=== PATIENT | male | born 1960 | race Caucasian/White ===

== ENCOUNTER 2017-02-01 11:30 | Day surgery (SDC) | payer BC ==
--- NOTE | 2017-02-01 07:36 | HP ---
DATE OF SURGERY: 02/01/2017 HISTORY OF PRESENT ILLNESS: The patient is a 57 year-old with history of colon cancer. The last colonoscopy was a couple of years ago and he is in need of follow up screening colonoscopy. He denies any blood in his stools, denied any change in bowel movement or abdominal pain. PAST MEDICAL HISTORY: He has had hypothyroidism, hypertension and colon cancer. PAST SURGICAL HISTORY: Colon cancer surgery, neck surgery, hernia repair in the past. MEDICATIONS: He takes some blood pressure and thyroid pill the names of which he did not know. ALLERGIES: NKDA. FAMILY HISTORY: Cancer. SOCIAL HISTORY: No smoking. Alcohol use six beers per week denies abuse. REVIEW OF SYSTEMS: Twelve systems reviewed per admission assessment. No chest pain or palpitations other systems negative or noncontributory as above and per preadmission questionnaire. PHYSICAL EXAMINATION: GENERAL: No acute distress. HEENT: Sclerae nonicteric. NECK: No JVD. CHEST: Equal excursion, nonlabored breathing. CVS: Regular rate and rhythm. ABDOMEN: Soft. No peritoneal signs. EXTREMITIES: No significant edema. NEURO: Alert, moving extremities symmetrically. No gross motor deficits noted. IMPRESSION: History of colon cancer in need of follow up screening colonoscopy. I feel he is a candidate, will proceed colonoscopy. General risk of bleeding or infection, small risk of bowel injury or perforation possibly requiring open procedure, small risk of missed or nondiagnosis or incomplete exam possibly requiring barium enema, other studies or procedures. He understands and agrees to the planned procedure and will proceed with outpatient colonoscopy.
[2017-02-01] MEDS ORDERED: DEMEROL 50 MG IV ONE (11:31)
[2017-02-01] MEDS ORDERED: Zofran 4 MG/2 ML VIAL IV ONE (11:31)
[2017-02-01] MEDS ORDERED: VERSED 5 MG/5 ML IV ONE (11:31)
[2017-02-01] MEDS ORDERED: Lactated Ringers 1,000 ML IV SCH (12:30)
[2017-02-01] MEDS ORDERED: Lactated Ringers 1,000 ML IV ONE (15:28)
[2017-02-01 18:03] VITALS: PULSE 55; O2SAT 98
[2017-02-01 18:08] VITALS: BP 126/78
--- NOTE | 2017-02-02 08:50 | OP ---
SURGERY DATE/TIME: 02/01/2017 1452 PREOPERATIVE DIAGNOSIS: History of colon cancer, need for follow up colonoscopy. POSTOPERATIVE DIAGNOSES: 1) Poor prep limiting the exam. 2) Diverticulosis. 3) Small internal and external hemorrhoids. 4) Small raised lesion versus hyperplastic lesion versus early polyp sigmoid colon. PROCEDURES: Colonoscopy. SURGEON: Dr. Blu Le. ANESTHESIA: IV sedation IV Demerol and Versed. ESTIMATED BLOOD LOSS: Minimal. INDICATIONS: As noted above. Risks and benefits explained in detail but not limited to and consent obtained. He had forgotten to stop his aspirin but he accepted the increased risk of bleeding and decided he wanted to go ahead and proceed since he had taken the prep. Risks and benefits explained in detail but not limited to, consent had been obtained. DESCRIPTION OF PROCEDURE AND FINDINGS: The patient is taken to the endoscopy room. After official time out and no disagreement with planned procedure, he is incrementally sedated with IV Demerol and Versed. In conscious sedated state and hemodynamically stable. Digital rectal exam did not reveal any rectal masses. He did have some small internal and external hemorrhoids. Video colonoscope inserted and passed up the tortuous sigmoid, descending colon around to the terminal ileum which was grossly unremarkable. The ileocolonic anastomotic site no evidence of recurrence and was widely patent. The scope slowly and carefully withdrawn. Again the prep was very poor with liquidy semisolid stool very much limiting the exam this was hard to suck into the scope. Slowly and carefully suctioned. The scope is slowly and carefully withdrawn over the next eight to ten minutes. A couple very small raised lesions whether these are simple hyperplastic lesions versus early polyps removed with hot biopsy forceps with brief bursts of cautery with hot biopsy forceps at least two or three areas in the sigmoid colon. Otherwise he had some mild diverticulosis. He had some small internal and external hemorrhoids. There were no signs of any large polyps, masses or obstructing lesions. Again, the very poor prep limited the exam for small lesions. If these polyps are hyperplastic will follow up in a couple of years. If there is any adenomatous polyps on biopsy report may consider follow up in one year. Otherwise he tolerated the procedure well. Scope is withdrawn. He had some small internal and external hemorrhoids. There are no signs of any large polyps, masses or obstructing lesions. No evidence of recurrence at the anastomotic site. Findings discussed with his out in the waiting area.
== END 2017-02-01 16:35 | disposition home or self-care (01) ==
LOC: SDC 11:30
PROVIDERS: ATTEND Surgery
PROC: 0DBN8ZX Excision of Sigmoid Colon, Via Natural or Artificial Opening Endoscopic, Diagnostic (ICD-10-PCS; principal; 2017-02-01)
DX: K57.90 Diverticulosis of intestine, part unspecified, without perforation or abscess without bleeding (principal); K64.4 Residual hemorrhoidal skin tags; K64.8 Other hemorrhoids; K63.9 Disease of intestine, unspecified; K63.5 Polyp of colon; Z12.11 Encounter for screening for malignant neoplasm of colon; E03.9 Hypothyroidism, unspecified; I10 Essential (primary) hypertension
CPT/HCPCS: J2175; J2250; J2405

== ENCOUNTER 2020-02-05 08:08 | Day surgery (SDC) | payer BC ==
--- NOTE | 2020-02-05 07:42 | HP ---
DATE OF SURGERY: 02/05/2020 HISTORY OF PRESENT ILLNESS: The patient is a 60 year old with history of colon cancer. He denies any bleeding, denies any change in bowel movements, denies any pain. Family history negative for colon cancer. He is in need of follow up surveillance colonoscopy for personal history of colon cancer. PAST MEDICAL HISTORY: Hepatitis, hypertension. PAST SURGICAL HISTORY: Neck surgery in the past. He had right colectomy and primary reanastomosis. Right inguinal hernia and umbilical hernia repair in the past. MEDICATIONS: Blood pressure medication, thyroid medication which he could not remember the names of. ALLERGIES: NKDA. FAMILY HISTORY: Cancer. Negative for colon cancer though. SOCIAL HISTORY: History of smoking in the past, does drink some alcohol occasionally, denies abuse. REVIEW OF SYSTEMS: Fourteen systems reviewed. No chest pain or palpitations. Other systems negative or noncontributory as above and per preadmission questionnaire. PHYSICAL EXAMINATION: GENERAL: No acute distress. HEENT: Sclerae nonicteric. NECK: No JVD. CHEST: Equal excursion, nonlabored breathing. CVS: Regular rate and rhythm. ABDOMEN: Soft. No peritoneal signs. EXTREMITIES: No significant edema. NEURO: Alert, oriented, moving extremities symmetrically. No gross motor deficits noted. RECTAL: Deferred timed to endoscopy exam. PSYCH: Appropriate mood and affect. IMPRESSION: Prior history of colon cancer, in need of follow up surveillance colonoscopy. I feel he is a candidate. He was shown the risk sheet, explained the procedure in detail including but not limited to bleeding or infection, risk of bowel injury or perforation possibly requiring open procedure, risk of missed or nondiagnosis or incomplete exam possibly requiring barium enema, other studies or procedures, general risk of anesthesia or sedation, risk of bowel prep but not limited to. He understands and agrees to the planned procedure, will proceed with outpatient follow up colonoscopy.
[2020-02-05] MEDS ORDERED: Lactated Ringers 1,000 ML IV SCH (08:30)
[2020-02-05] MEDS ORDERED: DIPRIVAN 200 MG/20 ML IV ONE (10:19)
[2020-02-05 12:09] VITALS: O2SAT 93
[2020-02-05 12:17] VITALS: BP 126/83; PULSE 65
--- NOTE | 2020-02-06 08:07 | OP ---
SURGERY DATE/TIME: 02/05/2020 1043 PREOPERATIVE DIAGNOSIS: History of colon cancer, need follow up colonoscopy. POSTOPERATIVE DIAGNOSES: 1) Small polyps and raised lesion sigmoid colon, rectosigmoid colon small raised area in anastomotic area, path pending. 2) Diverticulosis. 3) ASA Class II. PROCEDURES: 1) Colonoscopy to terminal ileum. 2) Cold biopsy of small vague raised area versus inflammation ileocolonic anastomotic area. 3) Hot biopsy removal of small raised area versus early polyp or hyperplastic lesion sigmoid colon. 4) Hot snare polypectomy small sigmoid colon polyp. 5) Hot biopsy polypectomy small rectosigmoid colon polyp. SURGEON: Dr. Blu Le. ANESTHESIA: MAC. WITHDRAWAL TIME: Approximately ten minutes. PREP: Fair. ESTIMATED BLOOD LOSS: Minimal. INDICATIONS: As noted above. Risks and benefits explained in detail but not limited to and consent obtained. DESCRIPTION OF PROCEDURE AND FINDINGS: The patient is taken to the operating room. MAC anesthesia induced. After official time out and no disagreement with planned procedure, digital rectal exam did not reveal any rectal masses. Ileocecal anastomosis no gross recurrence. Small vague raised area. Cold biopsy accomplished. Prep overall was fair. The scope was slowly and carefully withdrawn over the next ten minutes. Again the cold biopsy of ileocolonic anastomotic vague raised area versus inflammation, path pending. Scope pulled back to the sigmoid colon. Small early polyp versus hyperplastic lesion removed with hot biopsy forceps with brief bursts of cautery. Good hemostasis noted. There was a small polyp in the sigmoid colon about 25 cm removed with hot snare polypectomy with brief bursts of cautery. Whether this is adenomatous versus hyperplastic unclear but it was removed with the snare. Good hemostasis noted. Scope then pulled back to the rectosigmoid colon. Another small polyp removed with hot biopsy forceps with brief bursts of cautery. Good hemostasis noted. He had some minimal internal hemorrhoids. There were no signs of any large polyps, masses or obstructing lesions. He had some mild diverticulosis. Prep overall was fair. Findings discussed with his who works at the hospital out in the waiting area. I will see him back in the office next week.
== END 2020-02-05 12:01 | disposition home or self-care (01) ==
LOC: SDC 08:08
PROVIDERS: ATTEND Surgery
DX: Z08 Encounter for follow-up examination after completed treatment for malignant neoplasm (principal); Z85.038 Personal history of other malignant neoplasm of large intestine; K57.30 Diverticulosis of large intestine without perforation or abscess without bleeding; D12.5 Benign neoplasm of sigmoid colon
CPT/HCPCS: J2704

== ENCOUNTER 2020-08-12 08:05 | Day surgery (SDC) | payer OTHER ==
[2020-08-12] MEDS ORDERED: Lactated Ringers 1,000 ML IV ONE (08:18)
[2020-08-12] MEDS ORDERED: Lactated Ringers 1,000 ML IV SCH (08:30)
--- NOTE | 2020-08-12 09:10 | HP ---
DATE OF SURGERY: 08/12/2020 HISTORY OF PRESENT ILLNESS: The patient is a 60 year-old who had abnormal blood count recently. He was at and they requested upper endoscopy for further evaluation and a colonoscopy a few months ago. PAST MEDICAL HISTORY: Hypertension, diabetes, hypothyroidism. PAST SURGICAL HISTORY: Colon cancer surgery. Hernia surgery. Carpal tunnel. Ruptured back discs in the past. Prior right colectomy in the past for some cancer in the past. MEDICATIONS: Thyroid medication. Blood pressure pill. Xifaxan. ALLERGIES: NKDA. FAMILY HISTORY: Diabetes. Cancer. SOCIAL HISTORY: No smoking currently or alcohol abuse. REVIEW OF SYSTEMS: Fourteen systems reviewed. Negative or noncontributory as above and per preadmission questionnaire. PHYSICAL EXAMINATION: GENERAL: No acute distress. HEENT: Sclerae nonicteric. NECK: No JVD. CHEST: Equal excursion, nonlabored breathing. CVS: Regular rate and rhythm. ABDOMEN: Soft. No peritoneal signs. EXTREMITIES: No significant edema. NEURO: Alert, oriented, moving extremities symmetrically. PSYCH: Appropriate mood and affect. IMPRESSION: was concerned about cirrhosis and wanted upper endoscopy to rule out Lau's disease. General risk of anesthesia or sedation, risk of bowel injury or perforation but not limited to, risk of missed or nondiagnosis or incomplete exam. He understands and agrees to the planned procedure, will proceed with EGD with possible biopsy as an outpatient.
[2020-08-12] MEDS ORDERED: DIPRIVAN 200 MG/20 ML IV ONE (10:27)
[2020-08-12] MEDS ORDERED: Versed 2 MG/2 ML Injection ONE (10:27)
[2020-08-12 11:17] VITALS: O2SAT 94
[2020-08-12 11:45] VITALS: BP 124/75; PULSE 61
--- NOTE | 2020-08-12 15:03 | OP ---
SURGERY DATE/TIME: 08/12/2020 1038 PREOPERATIVE DIAGNOSIS: Newly diagnosed liver disease, need for upper endoscopy as requested per [facility] specialist to evaluate for varices. POSTOPERATIVE DIAGNOSES: 1) Minimal to mild gastritis. 2) Nonbleeding distal esophageal varices. 3) Small raised area proximal stomach, path pending. PROCEDURES: 1) EGD with cold biopsy of the antrum for Helicobacter pylori. 2) Cold biopsy small raised area proximal stomach, status post path. 3) Cold biopsy gastroesophageal junction/distal esophagus to evaluate for metaplasia versus normal variation of the gastroesophageal junction. SURGEON: Dr. Blu Le. ANESTHESIA: MAC. ESTIMATED BLOOD LOSS: Minimal. INDICATIONS: As noted above. Risks and benefits explained in detail and not limited to and consent obtained. DESCRIPTION OF PROCEDURE AND FINDINGS: The patient is taken to the endoscopy room. MAC anesthesia introduced. After official time out and no disagreement with planned procedure, a bite block positioned. Video gastroscope easily passed down the esophagus through the patent pylorus to the junction of the second and third portion of the duodenum grossly unremarkable. No signs of any ulcers or other mucosal lesions. The scope pulled back into the stomach. He did have some mild gastric erythema and some early minimal to mild gastritis. Cold biopsy taken for Helicobacter pylori. Good hemostasis noted. No signs of any obvious ulcers or masses. On retroflex the proximal stomach, gastroesophageal junction fairly snug against the scope. No signs of any significant hiatal hernia. There did not appear to be evidence of any large gastric varices. There was some small whiter colored raised area whether this a xanthoma or other etiology, cold biopsies were taken in the proximal stomach. Good hemostasis noted. The scope straightened. Gastroesophageal junction about 40 cm. He did have some nonbleeding distal esophageal varices in the distal esophagus. There was a small, little salmon pink mucosa extending up the esophagus whether just normal variation of gastroesophageal junction versus early inflammation or metaplasia cold biopsy is taken staying away from the varices. Good hemostasis noted. The remainder of the esophagus other than the distal esophageal nonbleeding varies there is no evidence of any other masses or bleeding on withdrawal of the scope. The patient tolerated the procedure well. Findings discussed with the family out in the waiting area.
== END 2020-08-12 11:50 | disposition home or self-care (01) ==
LOC: SDC 08:05
PROVIDERS: ATTEND Surgery
DX: K29.70 Gastritis, unspecified, without bleeding (principal); E11.9 Type 2 diabetes mellitus without complications; I10 Essential (primary) hypertension; E03.9 Hypothyroidism, unspecified; K76.9 Liver disease, unspecified; I85.00 Esophageal varices without bleeding
CPT/HCPCS: 82947; 88305; 88312; J2250; J2704

== ENCOUNTER 2020-10-30 08:23 | Day surgery (SDC) | payer OTHER ==
[2012-11-03 08:55] VITALS: BP 119/73
[2020-10-30] MEDS ORDERED: Sodium Chloride 0.9(Preservative Free) 10 ML IJ ONE (08:24)
[2020-10-30] MEDS ORDERED: Depo-Medrol 40 MG/ML IM ONE (08:24)
[2020-10-30] MEDS ORDERED: DIPRIVAN 200 MG/20 ML IV ONE (09:07)
[2020-10-30] MEDS ORDERED: Ketamine HCl 50 MG/ML ONE (09:07)
[2020-10-30] MEDS ORDERED: Lactated Ringers 1,000 ML IV ONE (09:45)
--- NOTE | 2020-10-30 11:45 | XRAY ---
Indication: Right L3-L5 transforaminal TACOS. Intraoperative fluoroscopy provided for 1 minute. 4 digital spot images submitted for interpretation demonstrates posterior needle tips projecting over the expected right L4 and L5 nerve roots. Small amount of contrast injected for needle tip placement. Correlate with intraoperative findings/report.
--- NOTE | 2020-10-30 11:52 | XRAY ---
1 minute fluoroscopy time in surgery for right L3-L5 transforaminal TACOS
== END 2020-10-30 10:06 | disposition home or self-care (01) ==
LOC: SDC-PAIN 08:23
PROVIDERS: ATTEND Psychiatry & Neurology Pain Medicine
DX: M54.16 Radiculopathy, lumbar region (principal); E11.9 Type 2 diabetes mellitus without complications; Z79.899 Other long term (current) drug therapy
CPT/HCPCS: 64483; 64484; 72100; 77003; 82947; J1030; J2704; Q9966

== ENCOUNTER 2020-11-13 08:01 | Day surgery (SDC) | payer OTHER ==
[2012-11-03 08:55] VITALS: BP 119/73
[2020-11-13] MEDS ORDERED: Sodium Chloride 0.9(Preservative Free) 10 ML IJ ONE (08:02)
[2020-11-13] MEDS ORDERED: Depo-Medrol 40 MG/ML IM ONE (08:02)
[2020-11-13] MEDS ORDERED: Lactated Ringers 1,000 ML IV ONE (08:47)
[2020-11-13] MEDS ORDERED: DIPRIVAN 200 MG/20 ML IV ONE (09:20)
--- NOTE | 2020-11-13 11:03 | XRAY ---
20 seconds of fluoroscopy was used in surgery for a caudal TACOS.
--- NOTE | 2020-11-13 11:13 | XRAY ---
Indication: Caudal TACOS. Intraoperative fluoroscopy provided for 20 seconds. Single digital spot image submitted for interpretation demonstrates caudal needle tip projecting mid sacrum. Small amount of contrast injected for needle tip placement. Correlate with intraoperative findings/report.
== END 2020-11-13 10:05 | disposition home or self-care (01) ==
LOC: SDC-PAIN 08:01
PROVIDERS: ATTEND Psychiatry & Neurology Pain Medicine
DX: M54.16 Radiculopathy, lumbar region (principal); E11.9 Type 2 diabetes mellitus without complications; Z79.899 Other long term (current) drug therapy
CPT/HCPCS: 62323; 72020; 77003; 82947; J1030; J2704; Q9966

== ENCOUNTER 2020-12-04 08:42 | Day surgery (SDC) | payer OTHER ==
[2012-11-03 08:55] VITALS: BP 119/73
[2020-12-04] MEDS ORDERED: Decadron 4 MG INJ IV ONE (08:43)
[2020-12-04] MEDS ORDERED: Xylocaine 1% Vial 30 ML PF IJ ONE (08:43)
[2020-12-04] MEDS ORDERED: DIPRIVAN 200 MG/20 ML IV ONE (10:26)
--- NOTE | 2020-12-04 13:20 | XRAY ---
Indication: Right piriformis injection. Intraoperative fluoroscopy provided for 31 seconds. Single digital spot image submitted for interpretation demonstrates needle tip projecting over expected right piriformis muscle. Small amount of contrast injected for needle tip placement. Correlate with intraoperative findings/report.
--- NOTE | 2020-12-04 14:43 | XRAY ---
31 seconds of fluoroscopy was used in surgery for a right piriformis muscle injection.
[2020-12-04] MEDS ORDERED: Lactated Ringers 1,000 ML IV ONE (17:25)
== END 2020-12-04 10:53 | disposition home or self-care (01) ==
LOC: SDC-PAIN 08:42
PROVIDERS: ATTEND Psychiatry & Neurology Pain Medicine
DX: M79.18 Myalgia, other site (principal); E11.9 Type 2 diabetes mellitus without complications; Z79.899 Other long term (current) drug therapy
CPT/HCPCS: 20552; 72020; 76942; 77002; 82947; J1100; J2001; J2704; Q9966

== ENCOUNTER 2022-07-06 07:52 | Day surgery (SDC) | payer OTHER ==
--- NOTE | 2022-07-06 08:03 | HP ---
DATE OF SURGERY: 07/06/2022 HISTORY OF PRESENT ILLNESS: The patient is a 62-year-old who had some colon cancer in the past. He had some liver problems. Dr. Savage did with liver biopsy, requests follow up upper endoscopy to evaluate for some varices. He denies any rectal bleeding. He denies any current abdominal pain. PAST MEDICAL HISTORY: Diabetes mellitus type II, hyperlipidemia, colon cancer, hypertension and hypothyroidism. PAST SURGICAL HISTORY: Partial colectomy. Hernia repair. Back surgery. Colonoscopy. Carpal tunnel in the past. MEDICATIONS: Euthyrox, triamcinolone acetonide, carvedilol, Lantus, Ozempic, enalapril, glucose, folic acid, Farxiga, thiamine. ALLERGIES: NKDA. FAMILY HISTORY: Diabetes, cancer. SOCIAL HISTORY: Former smoker. No alcohol abuse. REVIEW OF SYSTEMS: Fourteen systems reviewed per admission assessment. No chest pain or palpitations. Other systems negative or noncontributory as above and per preadmission questionnaire. PHYSICAL EXAMINATION: Height 5'8". BMI 32. GENERAL: No acute distress. HEENT: Sclerae nonicteric. EOMI. Oral mucous membranes moist. NECK: No JVD. CHEST: Equal excursion, nonlabored breathing. CVS: Regular rate and rhythm. ABDOMEN: Soft. No peritoneal signs. EXTREMITIES: No significant edema. NEURO: Alert, oriented, moving extremities symmetrically. RECTAL: Deferred timed to endoscopy exam. PSYCH: Appropriate mood and affect. SKIN: Dry. IMPRESSION: His liver specialist wants follow up upper endoscopy to evaluate for varices. He understands that our group does not band varices but will evaluate endoscopically. General risk of bleeding or infection, risk of bowel injury or perforation possibly requiring further procedure, risk of missed or nondiagnosis or incomplete exam, possibly requiring barium swallow, other studies, procedures or referrals. General risk of anesthesia or sedation. He understands if he is positive for varices may be referred to gastroenterology for variceal banding. He understands as well as general risk of anesthesia, bowel prep but not limited to, consent obtained, will proceed with EGD, possible biopsy as an outpatient.
[2022-07-06] MEDS ORDERED: Lactated Ringers 1,000 ML IV SCH (09:30)
[2022-07-06] MEDS ORDERED: Xylocaine-Mpf 2% 5 Ml Vial ONE (10:30)
[2022-07-06] MEDS ORDERED: DIPRIVAN 200 MG/20 ML IV ONE (10:30)
--- NOTE | 2022-07-06 11:39 | OP ---
SURGERY DATE/TIME: 07/06/2022 1035 PREOPERATIVE DIAGNOSIS: History of liver disease. His liver specialist requesting upper endoscopy to evaluate for varices. POSTOPERATIVE DIAGNOSES: 1) ASA Class 3. 2) Erosive gastritis. 3) Distal esophageal varices. PROCEDURE: EGD with cold biopsy of antrum for Helicobacter pylori. SURGEON: Dr. Derik Le. ANESTHESIA: MAC. ESTIMATED BLOOD LOSS: Minimal. INDICATIONS: As noted above. Risks and benefits explained in detail and not limited to and consent obtained. DESCRIPTION OF PROCEDURE AND FINDINGS: The patient is taken to the endoscopy room. MAC anesthesia introduced. After official time out and no disagreement with planned procedure, a bite block positioned. Video gastroscope easily passed down the esophagus through the patent pylorus to the third portion of the duodenum. Third, second and first portions of duodenum unremarkable. Back in the stomach he did have some mild erosive gastritis. No evidence of any ulcers. Cold biopsy is taken to evaluate for Helicobacter pylori. On retroflex the gastroesophageal junction snug against the scope. There is no evidence of any bleeding from any gastric varices at this point. The scope is straightened. The Z-line was fairly crisp. No signs of any erosions or ulcerations in the esophagus. He did have evidence of distal esophageal varices. No active bleeding currently. The remainder of the esophagus no obvious masses at this time. The scope is withdrawn. The patient tolerated the procedure well. There were no immediate complications. He understood preoperatively that our group does not band varices. If he needed that done in the future I would refer him to gastroenterology that does so.
[2022-07-06 11:52] VITALS: O2SAT 97
[2022-07-06 11:53] VITALS: BP 115/77; PULSE 67
== END 2022-07-06 11:50 | disposition home or self-care (01) ==
LOC: SDC 07:52
PROVIDERS: ATTEND Surgery
DX: K29.70 Gastritis, unspecified, without bleeding (principal); Z87.19 Personal history of other diseases of the digestive system; E11.9 Type 2 diabetes mellitus without complications; Z85.038 Personal history of other malignant neoplasm of large intestine; I85.00 Esophageal varices without bleeding
CPT/HCPCS: 82947; J2704

== ENCOUNTER 2023-05-03 09:31 | Day surgery (SDC) | payer OTHER ==
--- NOTE | 2023-05-03 08:36 | HP ---
DATE OF SURGERY: 05/03/2023 HISTORY OF PRESENT ILLNESS: The patient is a 63-year-old in need of follow up screening colonoscopy. No bloody stools. No change in bowel movements. No new pain. Family history negative for colon cancer. PAST MEDICAL HISTORY: Hypertension. History of colon cancer. Heartburn, diabetes, hyperlipidemia. PAST SURGICAL HISTORY: Carpal tunnel. Partial colectomy. Hernia repair. Back surgery. Colonoscopy. MEDICATIONS: Euthyrox, triamcinolone, thiamine, Ozempic, omeprazole, Neurontin, Lactulose, glucose, folic acid, Farxiga, Enalapril, Coreg. ALLERGIES: NKDA. FAMILY HISTORY: Diabetes. Negative for cancer. SOCIAL HISTORY: Former smoker. No alcohol abuse. REVIEW OF SYSTEMS: Twelve systems reviewed. No chest pain or palpitations. Other systems negative or noncontributory as above and per preadmission questionnaire. PHYSICAL EXAMINATION: Height 5 feet 10 inches. BMI 28.55. GENERAL: No acute distress. HEENT: Sclerae nonicteric. EOMI. Oral mucous membranes moist. NECK: No JVD. CHEST: Equal excursion, nonlabored breathing. CVS: Regular rate and rhythm. ABDOMEN: Soft. EXTREMITIES: No cyanosis or edema. NEURO: Alert, oriented, moving extremities symmetrically. RECTAL: Deferred timed to endoscopy exam. PSYCH: Appropriate mood and affect. SKIN: Dry. IMPRESSION: History of colon cancer in need of follow up screening colonoscopy. Risks and benefits explained in detail including bleeding or infection, risk of bowel injury or perforation, risk of missed or nondiagnosis or incomplete exam possibly requiring barium enema, other procedures or referrals, general risk of anesthesia or sedation, risk of bowel prep but not limited to, will proceed with outpatient follow up screening colonoscopy under MAC anesthesia. Continue medication for hypertension, heartburn, lipids, anxiety.
[2023-05-03] MEDS ORDERED: Lactated Ringers 1,000 ML IV ONE (09:57)
[2023-05-03] MEDS: Lactated Ringers 1,000 ML IV SCH (10:11)
[2023-05-03] MEDS ORDERED: DIPRIVAN 200 MG/20 ML IV ONE (11:46)
[2023-05-03] MEDS ORDERED: Versed 2 MG/2 ML Injection ONE (11:46)
[2023-05-03] MEDS ORDERED: PHENYLEPHRINE HCL ONE (11:58)
[2023-05-03 12:39] VITALS: RESP 16
[2023-05-03 12:57] VITALS: TEMP 97.1
[2023-05-03 13:02] VITALS: BP 113/77; PULSE 74; O2SAT 95
--- NOTE | 2023-05-03 13:18 | OP ---
SURGERY DATE/TIME: 05/03/2023 1151 PREOPERATIVE DIAGNOSIS: Prior history of colon cancer need follow up screening colonoscopy. POSTOPERATIVE DIAGNOSES: 1) Small polyp transverse colon and sigmoid colon. 2) Fair bowel prep. PROCEDURES: 1) Colonoscopy to ileocolonic anastomotic site with hot biopsy polypectomy transverse colon polyp. 2) Hot biopsy polypectomy of two small early polyps versus hyperplastic lesion sigmoid colon. SURGEON: Dr. Derik Le M.D. ANESTHESIA: MAC. ESTIMATED BLOOD LOSS: Minimal. INDICATIONS: As noted above. Risks and benefits explained in detail but not limited to and consent obtained. DESCRIPTION OF PROCEDURE AND FINDINGS: The patient is taken to the endoscopy room. MAC anesthesia induced. After official time out and no disagreement with planned procedure, digital rectal exam did not reveal any rectal masses. There were some minimal internal hemorrhoids. Video colonoscope inserted and passed up through the slightly tortuous sigmoid, descending, transverse colon over to the ileocolonic anastomotic site. That site was fine with no evidence of recurrence. The scope carefully withdrawn over the next seven minutes stopping in the transverse colon to remove a small polyp with hot biopsy polypectomy. Two small early polyps versus hyperplastic lesion in the sigmoid colon removed with hot biopsy polypectomy. Good hemostasis noted. Prep overall was fair. ASA Class III. Findings discussed with the family out in the waiting area. I will see him back in the office next week.
== END 2023-05-03 13:09 | disposition home or self-care (01) ==
LOC: SDC 09:31
PROVIDERS: ATTEND Surgery
DX: Z12.11 Encounter for screening for malignant neoplasm of colon (principal); Z08 Encounter for follow-up examination after completed treatment for malignant neoplasm; Z85.038 Personal history of other malignant neoplasm of large intestine; K63.5 Polyp of colon; K64.8 Other hemorrhoids; E11.9 Type 2 diabetes mellitus without complications
CPT/HCPCS: 82947; J2250; J2371; J2704

== ENCOUNTER 2023-12-27 10:16 | Day surgery (SDC) | payer OTHER ==
--- NOTE | 2023-12-26 21:39 | HP ---
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 He is cleared by his liver specialist to proceed with cholecystectomy. PAST MEDICAL HISTORY: Reflux, hepatitis, type 2 diabetes, heartburn, colon cancer, hypertension. PAST SURGICAL HISTORY: Neck surgery, carpal tunnel and a colon resection for colon cancer in the past, hernia repair in past, elbow surgery in the past, colonoscopy in the past. FAMILY HISTORY: Diabetes, cancer. SOCIAL HISTORY: Former smoker. No alcohol abuse. MEDICATIONS: Euthyroid, triamcinolone ointment, thiamin, Ozempic, omeprazole, Neurontin, lactulose, glucose, folic acid, Farxiga, enalapril, Coreg. ALLERGIES: No known drug allergies. REVIEW OF SYSTEMS: Twelve systems reviewed. No chest pain or palpitations. Other systems negative or noncontributory as above and per preadmission questionnaire pertinent for the MARRUFO. Followed by Hepatology. PHYSICAL EXAMINATION: GENERAL: Height 5 feet 10 inches. BMI 20.7. No acute distress. HEENT: Sclerae nonicteric. NECK: No JVD. CHEST: Equal excursion, nonlabored breathing. CARDIOVASCULAR: Regular rate and rhythm. ABDOMEN: Soft. EXTREMITIES: No cyanosis or edema. NEUROLOGIC: Alert and oriented, moving all extremities symmetrically. PSYCHIATRIC: Appropriate mood and affect. SKIN: Dry. IMPRESSION: Cholelithiasis, likely some chronic cholecystitis, history of nonalcoholic steatohepatitis, maybe some liver cirrhosis. Desires cholecystectomy. He has been cleared by his demurrage clerk to proceed with cholecystectomy. Risks of bleeding and infection; risk of risk of trocar injury or hernia; risk of bile leak, bile duct injury or retained stone or sludge, possibly requiring further procedure either open or ERCP. He has had prior laparotomy. He is a little bit higher risk of needing open procedure. Risk of anesthesia, DVT, PE, pneumonia; risk of aches and pains; bloating; constipation, and/or loose stools possibly chronic in nature; possibility of no improvement of preop symptoms possibly requiring further workup or studies or endoscopy, other referrals. He is a higher risk because of his liver. He accepts and wished to proceed before he gets in a bad cholecystitis situation. Otherwise, continue medications for his hypertension, reflux, diabetes and thyroid disease. We will proceed with outpatient under general anesthetic laparoscopic cholecystectomy, possible open.
[~2023-12-27 10:16] MED LIST: Sensorcaine 0.25% 10 ML ONE
[2023-12-27] MEDS: Lactated Ringers 1,000 ML IV SCH (10:31)
[2023-12-27] MEDS: MEFOXIN 2 GM PREMIX** 2 GM/50 ML ML IV SCH (10:31)
[2023-12-27 10:35] LABS: BASOPHIL % 1.2 % (0.2-1.2); Basophil (Absolute #) 0.03 x10^3/uL (0.01-0.08); Eosinophil % 5.2 % (0.8-7.0); Eosinophil (Absolute #) 0.13 x10^3/uL (0.04-0.54); Hematocrit 42.6 % (40.1-51.0); Hemoglobin 13.7 g/dL (13.7-17.5); IMMATURE GRAN # 0.01 x10^3u/L (0.001-0.031); IMMATURE GRAN % 0.4 % (0.001-0.429); Lymphocyte (Absolute #) 0.67 x10^3/uL (1.32-3.57); Lymphocytes % 26.6 % (21.8-53.1); Mean Cell Volume 87.5 fL (79.0-92.2); Mean Corpuscular Hemoglobin 28.1 pg (25.7-32.2); Mean Corpuscular Hgb Concent. 32.2 g/dL (32.3-36.5); Mean Platelet Volume 10.3 fL (9.4-12.4); Monocyte (Absolute #) 0.18 x10^3/uL (0.30-0.82); Monocytes % 7.1 % (5.3-12.2); Neutrophil % 59.5 % (34.0-67.9); Platelet Count 64 x10^3/uL (163-337); Red Blood Count 4.87 x10^6/uL (4.63-6.08); Red Cell Distribution Width 19.1 % (11.6-14.4); White Blood Count 2.5 x10^3/uL (4.23-9.07)
[2023-12-27] MEDS ORDERED: Pepcid 20 MG VIAL IV ONE (10:35)
[2023-12-27] MEDS ORDERED: Transderm Scop 1.5MG Patch ONE (10:35)
[2023-12-27] MEDS ORDERED: Reglan 10 MG/2 ML ONE (10:36)
[2023-12-27] MEDS: Pepcid 20 MG VIAL IV ONE (10:39)
[2023-12-27] MEDS: Reglan 10 MG/2 ML IV ONE (10:40)
[2023-12-27] MEDS: Transderm Scop 1.5MG Patch TOP ONE (10:42)
[2023-12-27 10:48] LABS: ALBUMIN 4.2 g/dL (3.5-5.0); ANION GAP 13.5 MEQ/L (5-15); BILIRUBIN,TOTAL 2.1 mg/dL (0.2-1.3); Calcium 9.2 mg/dL (8.4-10.2); Creatinine 1 1.08 mg/dL (0.66-1.25); EST GLOMERULAR FILTRATION RATE 76.6 ML/MIN; INR 1.05 (0.8-3.0); PROTIME 11.4 SECONDS (9.4-12.5); Potassium 4.7 mmol/L (3.5-5.1); Total Protein 7.6 g/dL (6.3-8.2)
[2023-12-27] MEDS ORDERED: Sodium Chloride 0.9% 250 ML 250 ML IV ONE (11:26)
[2023-12-27] MEDS ORDERED: DIPRIVAN 200 MG/20 ML IV ONE (12:49)
[2023-12-27] MEDS ORDERED: SUBLIMAZE 100 MCG/2 ML ONE ×2 (12:49→15:13)
[2023-12-27] MEDS ORDERED: ROCURONIUM BROMIDE IV ONE (12:49)
[2023-12-27] MEDS ORDERED: Versed 2 MG/2 ML Injection ONE (12:50)
[2023-12-27] MEDS ORDERED: Quelicin Fliptop 200 MG/10 ML ONE (12:55)
[2023-12-27] MEDS ORDERED: BRIDION 200MG/2ML IV ONE (14:18)
[2023-12-27] MEDS ORDERED: Zofran 4 MG/2 ML VIAL ONE (14:18)
[2023-12-27 15:07] LABS: Appearance Clear (Clear); Bacteria None Seen /HPF (None Seen); Bilirubin Negative (Negative); Blood Negative (Negative); Epithelial Cells None Seen /HPF (None Seen); Glucose, Urine >=1000 mg/dL (Negative); Hyaline Casts NONE SEEN /LPF (0-2); Ketones Negative (Negative); Leukocyte Esterase Negative (Negative); Nitrite Negative (Negative); Ph 5.5 (4.6-8.0); Protein,Urine Dip Negative (Negative); RBC 0-2 /HPF (0-5); Specific Gravity >=1.030 (1.005-1.030); Urobilinogen 0.2 mg/dL (0.2)
[2023-12-27] MEDS ORDERED: MORPHINE SULFATE 2 MG INJ ONE (15:47)
[2023-12-27 16:37] VITALS: O2SAT 97
[2023-12-27 16:43] VITALS: BP 138/74; PULSE 80; RESP 18; TEMP 97.8
--- NOTE | 2023-12-29 11:01 | OP ---
SURGERY DATE/TIME: 12/27/2023 [id number] PREOPERATIVE DIAGNOSES: 1) Exacerbation of chronic cholecystitis, symptomatic cholelithiasis. 2) History of cirrhosis. 3) History of prior laparotomy and colon resection. POSTOPERATIVE DIAGNOSES: 1) Exacerbation of chronic cholecystitis, symptomatic cholelithiasis. 2) History of cirrhosis. 3) History of prior laparotomy and colon resection. 4) Extensive intraabdominal adhesions. PROCEDURE: 1) Laparoscopic cholecystectomy, difficult (added an extra 45 minutes to 1 hour on usual procedure done). 2) Laparoscopic lysis of adhesions (allowing access for cholecystectomy). SURGEON: Derik Le MD ANESTHESIA: General. ESTIMATED BLOOD LOSS: Minimal. INDICATIONS: As above. Risks and benefits explained in detail, not limited to. Consent obtained. DESCRIPTION OF PROCEDURE AND FINDINGS: The patient was taken to the operating room and general anesthesia induced, prepped and draped in usual sterile fashion after official time-out for planned procedure. The prior midline laparotomy extended to his mid epigastrium. Small incision made . Fascia grasped and pulled upward. Veress needle inserted. Tested with saline. Pneumoperitoneum accomplished insufflating from an opening pressure of 0-15. A 5 mm right upper quadrant bladeless port and camera inserted without difficulty. It was in an open area there. There were some adhesions more medially. Another right upper quadrant 5 mm port placed as well as an 11 mm epigastric port at this time. It took quite some time and an extra 45 minutes to 1 hour to slowly, carefully lyse these adhesions anterior abdominal wall and omentum. There was no visible viscera in this area. There was just some stick omental adhesions up to the anterior abdominal wall. These were slowly, carefully dissected down carefully with the LigaSure device. Aligned dissection more medial and inferior enough to place the camera port. A 5 mm port was placed in this position. There was no evidence of any intraabdominal trocar insertion. At this point, the patient was positioned reverse Trendelenburg, airplaned to the left. Slowly took the omental sticky adhesions down off the gallbladder with the aid of LigaSure device, some pinpoint cautery and hook cautery. The gallbladder slowly was dissected posterolateral fashion, was fairly sticky given his prior surgery but slowly, carefully accomplished. Main cystic artery pulsatile, excised gallbladder wall, was clipped and divided with the LigaSure device. Cystic duct was slowly, carefully skeletonized so critical view was seen anterior and posterior. Once this was accomplished, cystic duct and cystic artery clipped x3 and divided in the usual fashion. Gallbladder was slowly, carefully dissected free from its dense attachment to the liver bed. 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 Gallbladder was slowly, carefully dissected, sealing the small little veins as necessary with the LigaSure device with the filmy adhesions taken down with electrocautery and the hook. attachments to the liver bed, the liver bed reinspected. Clips were noted to be in place in the cystic duct/cystic artery stumps. No signs of any active bleeding or bile leakage. Lamoure there was no benefit from drain placement. Gallbladder was released from its final attachment to the anterior edge of the liver. It was released and placed in provided sac and pulled up and out the epigastric port wound. This wound was closed with a combination of puncture closure device along with UR needle, placing an additional fascial suture externally. Prior to securing these final sutures, the port had been replaced, copious irrigation accomplished . The liver was not down low enough to make it easy to do any core biopsy of the liver itself. It was felt this should be deferred to his chairperson anesthesiology if he needed a liver biopsy down the road. Careful inspection of lysis of adhesions site. There were no signs of any active bleeding. There were no signs of any viscera in these areas. At this point, pneumoperitoneum decompressed. Ports removed. Wounds irrigated out. Skin incision closed with 4-0 Vicryl. Steri-Strips, sterile dressing applied. The patient tolerated the procedure well. There were no immediate complications. Findings discussed with family out in the waiting area. He was given a picture of his cirrhosis.
== END 2023-12-27 16:47 | disposition home or self-care (01) ==
LOC: SDC 10:16
PROVIDERS: ATTEND Surgery
DX: K80.10 Calculus of gallbladder with chronic cholecystitis without obstruction (principal); Z87.19 Personal history of other diseases of the digestive system; Z90.49 Acquired absence of other specified parts of digestive tract; E11.9 Type 2 diabetes mellitus without complications; Z85.038 Personal history of other malignant neoplasm of large intestine; K56.50 Intestinal adhesions [bands], unspecified as to partial versus complete obstruction
CPT/HCPCS: 36415; 80053; 81001; 85025; 85610; 87086; 93005; J0330; J0694; J2250; J2270; J2405; J2704; J3010; A9270-GY

== ENCOUNTER 2024-06-26 08:13 | Day surgery (SDC) | payer MEDICARE ==
[2024-06-26] MEDS ORDERED: Sodium Chloride 0.9% 1000 ML 1,000 ML ONE (08:28)
[2024-06-26] MEDS: Sodium Chloride 0.9% 1000 ML 1,000 ML IV SCH (08:32)
[2024-06-26 08:55] VITALS: PULSE 74
[2024-06-26 09:17] LABS: ALBUMIN 4.6 g/dL (3.5-5.0); ANION GAP 18.9 MEQ/L (5-15); BILIRUBIN,TOTAL 4.5 mg/dL (0.2-1.3); Calcium 8.6 mg/dL (8.4-10.2); Creatinine 1 1.02 mg/dL (0.66-1.25); EST GLOMERULAR FILTRATION RATE 81.6 ML/MIN; Total Protein 7.8 g/dL (6.3-8.2)
[2024-06-26 09:22] LABS: Potassium 4.7 mmol/L (3.5-5.1)
--- NOTE | 2024-06-26 09:58 | HP ---
HISTORY AND PHYSICAL HISTORY OF PRESENT ILLNESS: Iron deficiency anemia, history of iron infusions. Denies any bloody stools, history of falls. Family history negative colon cancer. Patient has history of cirrhosis, sees Dr. Loyd in October. PAST MEDICAL HISTORY: Hypertension, history of hepatitis and cirrhosis, esophageal varices, prior history of anemia, history of colon cancer, type 2 diabetes. HOME MEDICATIONS: Coreg, enalapril, Farxiga, folic acid, lactulose, Neurontin, omeprazole, Ozempic, thiamine, triamcinolone topical, Unithroid. ALLERGIES: No known drug allergies. PAST SURGICAL HISTORY: Cholecystectomy, EGD and colonoscopy in the past, has had ventral hernia repair, had colon resection in the past, had carpal tunnel release in the past. SOCIAL HISTORY: Former smoker. No alcohol abuse. FAMILY HISTORY: Negative for colon cancer. REVIEW OF SYSTEMS: Twelve systems reviewed. No chest pain or palpitations. Other systems negative or noncontributory as above and per preadmission questionnaire. PHYSICAL EXAMINATION: GENERAL: Height 5 feet 10 inches, BMI 29.41. No acute distress. HEENT: Sclerae nonicteric. NECK: No JVD. CARDIOVASCULAR: Regular rate and rhythm. RESPIRATORY: Equal excursion. Nonlabored breathing. ABDOMEN: Soft. SKIN: Dry. EXTREMITIES: No cyanosis. NEUROLOGIC: Alert and oriented, moving all extremities symmetrically. PSYCHIATRIC: Appropriate mood and affect. RECTAL: Deferred until time of endoscopy exam. IMPRESSION: Anemia, iron deficiency. Needs EGD and colonoscopy. Risks including but not limited to bleeding; infection; risk of bowel injury or perforation; risk of missed or nondiagnosis; incomplete exam possibly requiring barium swallow, barium enema, other studies or procedures; general risk of anesthesia, DVT, PE, pneumonia, but not limited to; risk of prep, but not limited to; risk of bowel injury, but not limited to. We will proceed with outpatient EGD, colonoscopy under MAC anesthesia. Otherwise, continue medications for hypertension, diabetes, and liver disease. We will proceed with EGD and colonoscopy as an outpatient.
[2024-06-26] MEDS ORDERED: propofoL IV ONE ×2 (11:13→11:56)
[2024-06-26 11:59] VITALS: RESP 18; TEMP 98.5
[2024-06-26 12:10] VITALS: O2SAT 100
[2024-06-26 12:12] VITALS: BP 138/72
--- NOTE | 2024-06-27 08:54 | OP ---
SURGERY DATE/TIME: 06/26/2024 [id number] PREOPERATIVE DIAGNOSES: 1) History of anemia. 2) History of cirrhosis. 3) History of varices. 4) History of colon cancer. 5) Need for followup EGD and colonoscopy. POSTOPERATIVE DIAGNOSES: 1) Esophageal varices. 2) Gastritis. 3) Colon polyps. 4) Fair bowel prep. 5) No evidence of recurrence at the ileocolonic anastomotic site. PROCEDURES: 1) Esophagogastroduodenoscopy with cold biopsy of the antrum for Helicobacter pylori. 2) Colonoscopy to ileum and ileocolonic anastomotic site with hot biopsy polypectomy of sigmoid colon polyps x3, one of which hemoclip was placed for hemostasis. SURGEON: Derik Le MD ANESTHESIA: MAC. ESTIMATED BLOOD LOSS: Minimal. INDICATIONS: Consent was obtained. DESCRIPTION OF PROCEDURE AND FINDINGS: Patient was taken to the operating room. MAC anesthesia was induced. After official time-out, no disagreement in planned procedure, bite block positioned. Videogastroscope passed down the esophagus. He had quite prominent esophageal varices, no current active bleeding, but they did look angry so he should follow up with his tertiary GI monumental stonemason for consideration of banding down the road. Otherwise, the scope was passed into the stomach. There was gastric erythema with erosive gastritis. No evidence of ulcer. The scope was passed through the patent pylorus to the junction of the third and fourth portions of the duodenum. The duodenum was grossly unremarkable. Scope pulled back into the stomach. Cold biopsy was taken for H pylori in the antrum. Good hemostasis noted. On retroflex, the GE junction was snug against the scope. The scope was straightened. The GE junction was about 40 cm. Again, he had varices. There were no signs of any obvious masses or other mucosal lesions on slow withdrawal of the scope. The scope was withdrawn. Attention was then turned to colonoscopy. Digital rectal exam did not reveal any rectal masses. He did have some internal hemorrhoids. Videocolonoscope was inserted and passed up through the tortuous sigmoid and descending colon around to the ileocolonic anastomotic site which was grossly unremarkable with no evidence of any cancer recurrence. The scope was carefully withdrawn over the next 9 minutes stopping in the sigmoid colon to remove 3 small early polyps versus hyperplastic lesions, removed with hot biopsy forceps. It should be noted that just touching the gentleman, whether he had antiplatelet or his liver was not making clotting factor as well, seemed to be a little more oozy even with the hot biopsy polypectomy. There was a little bit of ooze at 1 site that was felt would benefit from hemoclip. Hemoclip was applied. Good hemostasis noted. After adequate hemostasis, the scope was carefully pulled back. He did have some internal hemorrhoids. There was no signs of any large polyps, masses, or obstructing lesions. Prep overall was fair. Scope was withdrawn. Findings were discussed with his out in the waiting area.
== END 2024-06-26 12:13 | disposition home or self-care (01) ==
LOC: SDC 08:13
PROVIDERS: ATTEND Surgery
DX: Z09 Encounter for follow-up examination after completed treatment for conditions other than malignant neoplasm (principal); Z85.038 Personal history of other malignant neoplasm of large intestine; Z86.79 Personal history of other diseases of the circulatory system; Z87.19 Personal history of other diseases of the digestive system; Z86.718 Personal history of other venous thrombosis and embolism; E11.9 Type 2 diabetes mellitus without complications; I85.00 Esophageal varices without bleeding; K29.70 Gastritis, unspecified, without bleeding; K63.5 Polyp of colon; K64.8 Other hemorrhoids
CPT/HCPCS: 36415; 80053; 82947; 93005; J2704

== ENCOUNTER 2024-07-11 09:35 | Emergency (ER) | payer MEDICARE ==
[2024-07-11 09:48] VITALS: TEMP 98.2
[2024-07-11] MEDS ORDERED: Zofran 4 MG/2 ML VIAL ONE (10:17)
[2024-07-11] MEDS ORDERED: Sodium Chloride 0.9% 1000 ML 1,000 ML ONE (10:18)
[2024-07-11] MEDS: Zofran 4 MG/2 ML VIAL IV ONE (10:19)
[2024-07-11] MEDS: Sodium Chloride 0.9% 1000 ML 1,000 ML IV STA (10:19)
[2024-07-11 10:27] LABS: Absolute Neutrophil Ct (ANC) 1.63 x10^3/uL (1.78-5.38); BASOPHIL % 0.8 % (0.2-1.2); Basophil (Absolute #) 0.02 x10^3/uL (0.01-0.08); Eosinophil % 3.5 % (0.8-7.0); Eosinophil (Absolute #) 0.09 x10^3/uL (0.04-0.54); Hemoglobin 8.8 g/dL (13.7-17.5); IMMATURE GRAN # 0.01 x10^3u/L (0.001-0.031); IMMATURE GRAN % 0.4 % (0.001-0.429); Lymphocytes % 19.7 % (21.8-53.1); Mean Cell Volume 74.6 fL (79.0-92.2); Mean Corpuscular Hemoglobin 21.9 pg (25.7-32.2); Mean Corpuscular Hgb Concent. 29.3 g/dL (32.3-36.5); Mean Platelet Volume 9.7 fL (9.4-12.4); Monocyte (Absolute #) 0.29 x10^3/uL (0.30-0.82); Monocytes % 11.4 % (5.3-12.2); Neutrophil % 64.2 % (34.0-67.9); Platelet Count 108 x10^3/uL (163-337); Red Blood Count 4.02 x10^6/uL (4.63-6.08); Red Cell Distribution Width 17.6 % (11.6-14.4); White Blood Count 2.5 x10^3/uL (4.23-9.07)
[2024-07-11 10:46] LABS: ALBUMIN 4.1 g/dL (3.5-5.0); ANION GAP 16.8 MEQ/L (5-15); BILIRUBIN,TOTAL 2.7 mg/dL (0.2-1.3); Calcium 9.1 mg/dL (8.4-10.2); Creatinine 1 1.05 mg/dL (0.66-1.25); EST GLOMERULAR FILTRATION RATE 78.8 ML/MIN; Potassium 4.1 mmol/L (3.5-5.1); Total Protein 6.9 g/dL (6.3-8.2)
--- NOTE | 2024-07-11 10:58 | ERPHSYRPT ---
- History of Present Illness Time Seen by Provider: 07/11/24 10:00 Source: patient Exam Limitations: no limitations Patient Subjective Stated Complaint: Pt states "I have been vomiting and diarrhea since wednesday. I called Dr. Ashton office and she thought I needed to come here and get fluids and maybe a ct of my liver since my numbers have been a little off." Triage Nursing Assessment: Pt presented alert and oriented X 3, skin pwd. Pt ambulates with an upright steady gait, able to speak in clear full sentences. Pt resting comfortably on [facility] bed. Physician History: 64-year-old male history of Nielson, liver cirrhosis, colon cancer (cured) diabetes presents to our emergency department as a referral from his primary care doctor for evaluation of a 4-day history of nausea vomiting diarrhea. Patient feels weak. He feels dehydrated. Patient denies pain. No abdominal pain no chest pain. Vomiting is nonbilious nonbloody. No rash. No fever. Symptoms are moderate in intensity. No specific worsening or improving factors. at bedside. They voiced no other complaints or concerns at this time. Portions of this note were created with voice recognition technology. There may be grammatical, spelling, punctuation or sound alike errors Timing/Duration: day(s) (4 days) Severity: moderate Modifying Factors: Improves With: nothing Associated Symptoms: denies symptoms Allergies/Adverse Reactions: No Known Drug Allergies Allergy (Verified 06/20/24 13:51) Home Medications: Omeprazole Magnesium [Prilosec Otc] 20 mg PO DAILY 10/26/12 [History] Enalapril Maleate 10 mg [Vasotec 10 MG] 20 mg PO DAILY 11/19/14 [History] Levothyroxine Sodium [Euthyrox] 50 mcg PO DAILY 01/19/20 [History] Folic Acid 1 mg PO DAILY 08/12/20 [History] Thiamine HCl 100 mg PO DAILY 08/12/20 [History] Carvedilol 12.5 mg [Coreg 12.5 mg] 3.125 tab PO BID 06/23/22 [History] Dapagliflozin Propanediol [Farxiga] 1 tab PO DAILY 06/23/22 [History] Dextrose [Glucose] 1 tab PO DAILY PRN PRN 06/23/22 [History] Gabapentin [Neurontin ] 300 mg PO TID 06/23/22 [History] Lactulose 10 mg PO DAILY 06/23/22 [History] Semaglutide [Ozempic] 2 mg SQ WEEKLY 06/23/22 [History] Cholecalciferol (Vitamin D3) [Vitamin D] 5,000 unit PO DAILY 05/03/23 [History] [place]-3/Dha/Epa/Fish Oil [Fish Oil 1,000 mg Softgel] 1 each PO DAILY 06/20/24 [History] Hx Tetanus, Diphtheria Vaccination/Date Given: Yes Hx Influenza Vaccination/Date Given: No Hx Pneumococcal Vaccination/Date Given: No Travel Risk - International Travel Have you traveled outside of the country in past 3 weeks: No - Emerging Infectious Disease Are you exhibiting symptoms associated with any current EIDs: No - Review of Systems Constitutional: No Symptoms, No Fever, No Chills Eyes: No Symptoms Ears, Nose, & Throat: No Symptoms Respiratory: No Symptoms, No Cough, No Dyspnea Cardiac: No Symptoms, No Chest Pain, No Edema, No Syncope Abdominal/Gastrointestinal: No Symptoms, No Abdominal Pain, No Nausea, No Vomiting, No Diarrhea Genitourinary Symptoms: No Symptoms, No Dysuria Musculoskeletal: No Symptoms, No Back Pain, No Neck Pain Skin: No Symptoms, No Rash Neurological: No Symptoms, No Dizziness, No Focal Weakness, No Sensory Changes Psychological: No Symptoms Endocrine: No Symptoms Hematologic/Lymphatic: No Symptoms Immunological/Allergic: No Symptoms All Other Systems: Reviewed and Negative - Past Medical History Pertinent Past Medical History: Yes Neurological History: No Pertinent History ENT History: Glaucoma Cardiac History: Hypertension Respiratory History: Pneumonia Endocrine Medical History: Diabetes Type II, Hypothyroidism Musculoskeletal History: No Pertinent History, Other GI Medical History: Cirrhosis, Colorectal Cancer, GERD, Hernia, Ulcer, Other History: No Pertinent History Psycho-Social History: No Pertinent History Male Reproductive Disorders: No Pertinent History Other Medical History: esophageal varices. heartburn, colon cancer, back problems 4 ruptured disc, abdominal hernia repairs x4, D.M. type II and Liver Cirrhosis carpal tunnel both wrist and elbow. HX of Colon cancer. Anemia - Past Surgical History Past Surgical History: Yes Neuro Surgical History: No Pertinent History Cardiac: No Pertinent History Respiratory: No Pertinent History Gastrointestinal: Cholecystectomy, Colon Resection, Hernia Repair Genitourinary: No Pertinent History Musculoskeletal: Orthopedic Surgery Male Surgical History: Vasectomy Other Surgical History: november,4 neck surgeries, fx shoulder rt shoulder, left side carpal tunnel repair wrist and elbow repair. Titanium plate in neck with [address] and DC'd colonoscopy,egd - Social History Smoking Status: Former smoker Exposure to second hand smoke: No Drug Use: none - Social Determinants of Health Will the patient participate in the screening: Declined to provide - Nursing Vital Signs Nursing Vital Signs: Initial Vital Signs Temperature 98.2 F 07/11/24 09:43 Pulse Rate 75 07/11/24 09:43 Respiratory Rate 18 07/11/24 09:43 Blood Pressure 148/88 07/11/24 09:43 O2 Sat by Pulse Oximetry 100 07/11/24 09:43 Pain Scale Pain Intensity 0 - Physical Exam General Appearance: no apparent distress, alert, other Eye Exam: PERRL/EOMI, eyes nml inspection Ears, Nose, Throat Exam: normal ENT inspection, moist mucous membranes Neck Exam: normal inspection, full range of motion Respiratory Exam: normal breath sounds, lungs clear, No respiratory distress Cardiovascular Exam: regular rate/rhythm, normal heart sounds, normal peripheral pulses Gastrointestinal/Abdomen Exam: soft, normal bowel sounds, No tenderness, No mass Back Exam: normal inspection, normal range of motion, No CVA tenderness, No vertebral tenderness Extremity Exam: normal inspection, normal range of motion, pelvis stable Neurologic Exam: alert, oriented x 3, cooperative, normal mood/affect, sensation nml, No motor deficits Skin Exam: normal color, warm, dry, No rash Lymphatic Exam: No adenopathy SpO2 Interpretation: normal SpO2: 99 O2 Delivery: Room Air - Course Nursing assessment & vital signs reviewed: Yes EKG Interpreted by Me: RATE (78), Sinus Rhythm, NORMAL AXIS, NORMAL INTERVALS, NORMAL QRS Ordered Tests: Active Orders 24 hr Category Date Time Status EKG-ER Only STAT Care 07/11/24 10:20 Active IV Insertion STAT Care 07/11/24 10:16 Active CBC W DIFF Stat Lab 07/11/24 10:15 Completed CMP Stat Lab 07/11/24 10:15 Completed LIPASE Stat Lab 07/11/24 10:15 Completed Lactic Acid Stat Lab 07/11/24 10:20 Completed TROPONIN Q4H Lab 07/11/24 10:15 Completed TROPONIN Q4H Lab 07/11/24 14:30 Ordered TROPONIN Q4H Lab 07/11/24 18:30 Ordered UA W/RFX UR CULTURE Stat Lab 07/11/24 10:16 Ordered Medication Summary Discontinued Medications Generic Name Dose Route Start Last Admin Trade Name Brinda PRN Reason Stop Dose Admin Sodium Chloride 1,000 mls @ 999 mls/hr 07/11/24 10:16 07/11/24 11:32 Sodium Chloride 0.9% 1000 Ml IV 07/11/24 11:16 Infused .Q1H1M STA Infusion Sodium Chloride Confirm 07/11/24 10:18 Sodium Chloride 0.9% 1000 Ml Administered 07/11/24 10:19 Dose 1,000 mls @ ud .ROUTE .STK-MED ONE Ondansetron HCl 4 mg 07/11/24 10:16 07/11/24 10:19 Ondansetron Hcl 4 Mg/2 Ml Vial IV 07/11/24 10:17 4 mg STAT ONE Administration Ondansetron HCl Confirm 07/11/24 10:17 Ondansetron Hcl 4 Mg/2 Ml Vial Administered 07/11/24 10:18 Dose 4 mg .ROUTE .STK-MED ONE Lab/Rad Data: Laboratory Result Diagrams 07/11/24 10:15 07/11/24 10:15 Laboratory Results 07/11/24 07/11/24 07/11/24 Range/Units 10:28 10:20 10:15 WBC (4.23-9.07) x10^3/uL RBC (4.63-6.08) x10^6/uL Hgb (13.7-17.5) g/dL Hct (40.1-51.0) % MCV (79.0-92.2) fL MCH (25.7-32.2) pg MCHC (32.3-36.5) g/dL RDW (11.6-14.4) % Plt Count (163-337) x10^3/uL MPV (9.4-12.4) fL Gran % (34.0-67.9) % Immature Gran % (Auto) (0.001-0.429) % Nucleat RBC Rel Count (0.00-0.2) % Eos # (Auto) (0.04-0.54) x10^3/uL Immature Gran # (Auto) (0.001-0.031) x10^3u/L Absolute Lymphs (auto) (1.32-3.57) x10^3/uL Absolute Monos (auto) (0.30-0.82) x10^3/uL Absolute Nucleated RBC (0.00-0.012) x10^3u/L Lymphocytes % (21.8-53.1) % Monocytes % (5.3-12.2) % Eosinophils % (0.8-7.0) % Basophils % (0.2-1.2) % Absolute Granulocytes (1.78-5.38) x10^3/uL Basophils # (0.01-0.08) x10^3/uL Sodium (135-145) mmol/L Potassium (3.5-5.1) mmol/L Chloride (98-107) mmol/L Carbon Dioxide (22-30) mmol/L Anion Gap (5-15) MEQ/L BUN (9-20) mg/dL Creatinine (0.66-1.25) mg/dL Estimated GFR ML/MIN Glucose (74-106) mg/dL Lactic Acid 1.5 (0.4-2.0) Calcium (8.4-10.2) mg/dL Total Bilirubin (0.2-1.3) mg/dL AST (17-59) U/L ALT (0-50) U/L Alkaline Phosphatase (38-126) U/L Troponin I < 0.012 (0.000-0.033) ng/mL Serum Total Protein (6.3-8.2) g/dL Albumin (3.5-5.0) g/dL Lipase (23-300) U/L Influenza Type A Ag NEGATIVE (NEGATIVE) Influenza Type B Ag NEGATIVE (NEGATIVE) RSV (PCR) NEGATIVE (NEGATIVE) SARS-CoV-2 (PCR) NEGATIVE (NEGATIVE) 07/11/24 07/11/24 Range/Units 10:15 10:15 WBC 2.5 L (4.23-9.07) x10^3/uL RBC 4.02 L (4.63-6.08) x10^6/uL Hgb 8.8 L (13.7-17.5) g/dL Hct 30.0 L (40.1-51.0) % MCV 74.6 L (79.0-92.2) fL MCH 21.9 L (25.7-32.2) pg MCHC 29.3 L (32.3-36.5) g/dL RDW 17.6 H (11.6-14.4) % Plt Count 108 L (163-337) x10^3/uL MPV 9.7 (9.4-12.4) fL Gran % 64.2 (34.0-67.9) % Immature Gran % (Auto) 0.4 (0.001-0.429) % Nucleat RBC Rel Count 0.0 (0.00-0.2) % Eos # (Auto) 0.09 (0.04-0.54) x10^3/uL Immature Gran # (Auto) 0.01 (0.001-0.031) x10^3u/L Absolute Lymphs (auto) 0.50 L (1.32-3.57) x10^3/uL Absolute Monos (auto) 0.29 L (0.30-0.82) x10^3/uL Absolute Nucleated RBC 0.00 (0.00-0.012) x10^3u/L Lymphocytes % 19.7 L (21.8-53.1) % Monocytes % 11.4 (5.3-12.2) % Eosinophils % 3.5 (0.8-7.0) % Basophils % 0.8 (0.2-1.2) % Absolute Granulocytes 1.63 L (1.78-5.38) x10^3/uL Basophils # 0.02 (0.01-0.08) x10^3/uL Sodium 139 (135-145) mmol/L Potassium 4.1 (3.5-5.1) mmol/L Chloride 105 (98-107) mmol/L Carbon Dioxide 21 L (22-30) mmol/L Anion Gap 16.8 H (5-15) MEQ/L BUN 12 (9-20) mg/dL Creatinine 1.05 (0.66-1.25) mg/dL Estimated GFR 78.8 ML/MIN Glucose 118 H (74-106) mg/dL Lactic Acid (0.4-2.0) Calcium 9.1 (8.4-10.2) mg/dL Total Bilirubin 2.70 H (0.2-1.3) mg/dL AST 40 (17-59) U/L ALT 29 (0-50) U/L Alkaline Phosphatase 100 (38-126) U/L Troponin I (0.000-0.033) ng/mL Serum Total Protein 6.9 (6.3-8.2) g/dL Albumin 4.1 (3.5-5.0) g/dL Lipase 269 (23-300) U/L Influenza Type A Ag (NEGATIVE) Influenza Type B Ag (NEGATIVE) RSV (PCR) (NEGATIVE) SARS-CoV-2 (PCR) (NEGATIVE) - Progress Progress: improved Progress Note: Patient was sent to our ED by Dr. Ashton. Patient's suggested that Dr. Ashton may have wanted a CAT scan. I talked to Dr. Ashton at 11:38 AM. She states that she did not necessarily want a CAT scan per se. However she just wanted patient evaluated to see if there was a reason for a CAT scan. At this point patient has no abdominal pain. His labs appear to be at his baseline. There may be some degree of dehydration. Patient currently receiving fluids. Patient declined pain medication. We will continue to hydrate patient. No indication for CT abdomen pelvis at this time. Patient states that he feels better and is willing to go home. We will reassess patient after IV fluids are completed. If patient still feels well we will send him home. Portions of this note were created with voice recognition technology. There may be grammatical, spelling, punctuation or sound alike errors 07/11/24 11:37 Patient reassessed. He feels much better. Patient does not appear pale anymore after IV fluid administration. Patient states he is ready to go home. Vitals are normal. His laboratory values are at his baseline although the total bili is slightly higher than his previous lab. Patient tolerated p.o. No indication for further workup. A prescription for Zofran forwarded to patient's pharmacy. at bedside. Patient agrees to follow-up with his primary care doctor within 48 hours for reevaluation. Portions of this note were created with voice recognition technology. There may be grammatical, spelling, punctuation or sound alike errors Complexity of problem addressed is moderate acute complicated. No critical care time. Complexity of data reviewed and analyzed is extensive. Test ordered test reviewed results analyzed and correlated clinically with history and physical exam. Management discussed with patient's primary care provider. Risk of complication and or risk of morbidity/mortality of patient management is moderate. A prescription for Zofran forwarded to patient's pharmacy. Vital stable. Time spent to discharge patient is approximately 15 minutes. Plan of care established for shared decision making. No social determinants of health present to impede follow-up. Portions of this note were created with voice recognition technology. There may be grammatical, spelling, punctuation or sound alike errors 07/11/24 12:54 Counseled pt/family regarding: lab results, diagnosis - Departure Departure Disposition: Home Clinical Impression: Nausea vomiting and diarrhea, Dehydration, Leukopenia, Thrombocytopenia Condition: Stable Critical Care Time: No Referrals: FERNANDA ASHTON DO [Primary Care Provider, [facility]] - Follow up/PCP as directed Additional Instructions: Discharge/Care Plan NOLA KIRBY was seen on 07/11/24 in the Emergency Room. The patient was counseled regarding Diagnosis,Lab results, Imaging studies, need for follow up and when to return to the Emergency Room. Prescriptions given: Discharge Note I have spoken with the patient and/or caregivers. I have explained the patient's condition, diagnosis and treatment plan based on the information available to me at this time. I have answered the patient's and/or caregiver's questions and addressed any concerns. The patient and/or caregivers have as good understanding of the patient's diagnosis, condition and treatment plan as can be expected at this point. The vital signs have been stable. The patient's condition is stable and appropriate for discharge from the emergency department. The patient will pursue further outpatient evaluation with the primary care physician or other designated or consulting physician as outlined in the discharge instructions. The patient and/or caregivers are agreeable to this plan of care and follow-up instructions have been explained in detail. The patient and/or caregivers have received these instruction. The patient/and or caregivers are aware that any significant change in condition or worsening of symptoms should prompt an immediate return to this or the closest emergency department or call 911. Prescriptions: Ondansetron ODT 4 MG [Zofran Odt 4 mg] 4 mg PO Q6H PRN PRN #10 tablet PRN Reason: Vomiting
[2024-07-11 11:06] LABS: INFLUENZA A NEGATIVE (NEGATIVE); INFLUENZA B NEGATIVE (NEGATIVE); RESPIRATORY SYNCTIAL VIRUS NEGATIVE (NEGATIVE); SARS-CoV-2 Xpert Express NEGATIVE (NEGATIVE)
[2024-07-11 12:56] VITALS: BP 125/71; PULSE 68; RESP 14
[2024-07-11 12:57] VITALS: O2SAT 99
[2024-07-11 15:45] LABS: Slide Review 1 YES
== END 2024-07-11 13:06 | disposition home or self-care (01) ==
LOC: ED 09:35
DX: R11.2 Nausea with vomiting, unspecified (principal); R19.7 Diarrhea, unspecified; E86.0 Dehydration; D72.819 Decreased white blood cell count, unspecified; D69.6 Thrombocytopenia, unspecified; Z79.84 Long term (current) use of oral hypoglycemic drugs; Z79.85 Long-term (current) use of injectable non-insulin antidiabetic drugs; Z79.899 Other long term (current) drug therapy
CPT/HCPCS: 0241U; 36415; 80053; 83605; 83690; 84484; 85025; 93005; 96361; 96374; 99284; J2405